=== PATIENT | male | born 1980 | race African-American/Black ===

== ENCOUNTER 2020-04-05 21:14 | Emergency (ER) | payer MEDICAID, OTHER ==
[~2020-04-05] VITALS: Ht 188 cm; Wt 93.3 kg
[2020-04-05 21:25] VITALS: BP 110/59
[2020-04-05] MEDS ORDERED: SULF1TAB24 PO (21:45)
--- NOTE | 2020-04-05 21:46 | PHYS DOC ---
Past History Past Medical History: No Pertinent History (PRINCE STOLL APRN) Past Surgical History: No Surgical History (PRINCE STOLL APRN) Smoking: Non-smoker Additional Smoking Information: 1/2 PACK Alcohol Use: None Drug Use: None (PRINCE STOLL APRN) Adult General Chief Complaint Chief Complaint: INSECT BITE [facility] HPI Patient is a 39 year old male presents with bug bite to right upper back. Patient reports he was sitting on the couch watching TV when he felt a bite on his back. Denies pain. States he has seen several spiders in the facility where he lives, and thinks one may have bit him. States it just feels like a burning sensation in his back where the discomfort is. (PRINCE STOLL APRN) Review of Systems Review of Systems Constitutional: Denies fever or chills [] Respiratory: Denies cough or shortness of breath [] Cardiovascular: No additional information not addressed in HPI [] GI: Denies abdominal pain, nausea, vomiting, bloody stools or diarrhea [] : Denies dysuria or hematuria [] Musculoskeletal: Denies back pain or joint pain [] Integument: Denies rash Does report bug bite to right upper back Neurologic: Denies headache, focal weakness or sensory changes [] Endocrine: Denies polyuria or polydipsia [] All other systems were reviewed and found to be within normal limits, except as documented in this note. (PRINCE STOLL APRN) Allergies Allergies Allergies Coded Allergies Type Severity Reaction Last Updated Verified venom-honey bee Allergy Intermediate 12/09/13 Yes chlorpromazine Allergy Unknown 04/05/20 Yes (PRINCE STOLL APRN) Physical Exam Physical Exam Constitutional: Well developed, well nourished, no acute distress, non-toxic appearance. [] HENT: Normocephalic, atraumatic, bilateral external ears normal, oropharynx moist, no oral exudates, nose normal. [] Eyes: PERRLA, EOMI, conjunctiva normal, no discharge. [] Neck: Normal range of motion, no tenderness, supple, no stridor. [] Cardiovascular:Heart rate regular rhythm, no murmur [] Lungs & Thorax: Bilateral breath sounds clear to auscultation. lesion to right chest wall [] Abdomen: Bowel sounds normal, soft, no tenderness, no masses, no pulsatile masses. [] Skin: Warm, dry, 3cm x 1/2 cm erryathamotus, raised, nodule with central edla, no purulence, no drainage noted, minimal tenderness, minimal warmth noted over lesion. Back: No tenderness, no CVA tenderness. [] Extremities: No tenderness, no cyanosis, no clubbing, ROM intact, no edema. [] Neurologic: Alert and oriented X 3, normal motor function, normal sensory function, no focal deficits noted. [] Psychologic: Affect normal, judgement normal, mood normal. [] (PRINCE STOLL APRN) Current Patient Data Vital Signs Vital Signs Date Time Temp Pulse Resp B/P (MAP) Pulse Ox O2 Delivery O2 Flow Rate FiO2 04/05/20 21:25 97.9 60 16 110/59 (76) 99 Room Air (PRINCE STOLL APRN) EKG EKG [] (PRINCE STOLL APRN) Radiology/Procedures Radiology/Procedures [] (PRINCE STOLL APRN) Heart Score Risk Factors: Risk Factors: DM, Current or recent (<one month) smoker, HTN, HLP, family history of CAD, obesity. Risk Scores: Risk Factors: DM, Current or recent (<one month) smoker, HTN, HLP, family history of CAD, obesity. (PRINCE STOLL APRN) Course & Med Decision Making Course & Med Decision Making Pertinent Labs and Imaging studies reviewed. (See chart for details) []Appears insect bite, with presence of spiders reported in facility believe likely insect bite. Will treat with short course of abx. (PRINCE STOLL APRN) Dragon Disclaimer Dragon Disclaimer This electronic medical record was generated, in whole or in part, using a voice recognition dictation system. (PRINCE STOLL APRN) Departure Departure: Impression: Primary Impression: Insect bite Disposition: 01 DC HOME SELF CARE/HOMELESS Condition: GOOD Referrals: PCP,NO (PCP) Patient Instructions: Insect Bite, [place]we-zo-Hska Additional Instructions: Take antibiotic as prescribed. Tylenol and Ibuprofen for pain. Warm compress to area as needed for comfort. Follow up with PCP if worsening symptoms. Scripts Sulfamethoxazole/Trimethoprim (BACTRIM DS TABLET) 1 Each Tablet 1 EACH PO BID for insect bite, #10 TAB Prov: PRINCE STOLL APRN 04/05/20 Martina Disclaimer This chart was dictated in whole or in part using Voice Recognition software in a busy, high-work load, and often noisy Emergency Department environment. It may contain unintended and wholly unrecognized errors or omissions. (JAY CERRATO MD) Attending Signature Attending Signature I have participated in the care of this patient and I have reviewed and agree with all pertinent clinical information above including history, exam, and recommendations. (JAY CERRATO MD) Problem Qualifiers Primary Impression: Insect bite Encounter type: initial encounter Site of insect bite: shoulder Laterality: right Qualified Codes: S40.261A - Insect bite (nonvenomous) of right shoulder, initial encounter; W57.XXXA - Bitten or stung by nonvenomous insect and other nonvenomous arthropods, initial encounter PRINCE STOLL APRN Apr 05, 2020 21:46 JAY CERRATO MD Apr 06, 2020 22:36
== END 2020-04-05 21:53 | disposition home or self-care (01) ==
LOC: ER 21:14
DX: S20.461A Insect bite (nonvenomous) of right back wall of thorax, initial encounter (principal); S40.261A Insect bite (nonvenomous) of right shoulder, initial encounter; W57.XXXA Bitten or stung by nonvenomous insect and other nonvenomous arthropods, initial encounter; Y93.89 Activity, other specified; Y92.89 Other specified places as the place of occurrence of the external cause; Y99.8 Other external cause status
CPT/HCPCS: 99283